=== PATIENT | male | born 1985 | race Caucasian/White ===

== ENCOUNTER 2023-12-17 16:32 | Emergency (ER) | payer OTHER ==
[2023-12-17 17:09] VITALS: BMI 24.5
[2023-12-17 18:04] LABS: EOS % 9.7 % (0-4.5); HEMATOCRIT 20.4 % (35.4-49); LYMPH % 8.1 % (8-40); MCH 30.5 pg (25.7-33.7); MCHC 33.4 g/dl (32.0-35.9); MEAN CELL VOLUME 91.5 fl (80-96); MEAN PLT VOLUME 7.2 fl (7.5-11.1); MONO % 7.8 % (3.8-10.2); NEUT % 73.4 % (42.8-82.8); PLATELET COUNT 243 10^3/uL (134-434); RBC 2.23 M/mm3 (4.00-5.60); RDW 16.7 % (11.9-15.9); WHITE BLOOD COUNT 10.3 K/mm3 (4.0-10.0)
[2023-12-17] MEDS ORDERED: oxyCODONE HCL 5 MG TABLET ONE ×2 (18:04→22:23)
[2023-12-17] MEDS: oxyCODONE HCL 5 MG TABLET PO ONE ×2 (18:06→22:32)
[2023-12-17 18:10] LABS: INR 1.32 (0.83-1.09); PROTHROMBIN TIME (PATIENT) 14.8 SEC (9.7-13.0)
[2023-12-17 18:13] LABS: ACTIVATED PTT 40.4 SECONDS (25.2-36.5); HEMOGLOBIN 6.8 GM/dL (11.7-16.9)
[2023-12-17 18:22] LABS: POTASSIUM 3.5 mmol/L (3.5-5.1)
[2023-12-17 18:24] LABS: ALBUMIN 1.8 g/dl (3.4-5.0); BLOOD UREA NITROGEN 46.2 mg/dL (7-18); CALCIUM 7.8 mg/dL (8.5-10.1)
[2023-12-17 18:27] LABS: CREATININE 6.9 mg/dL (0.55-1.3)
[2023-12-17 18:29] LABS: BILIRUBIN,TOTAL 0.4 mg/dL (0.2-1); TOT PROT 6.6 g/dl (6.4-8.2)
[2023-12-18 01:10] VITALS: BP 134/65; PULSE 69; RESP 18; TEMP 98.4
== END 2023-12-18 01:10 | disposition home or self-care (01) ==
LOC: JER 16:32
DX: R60.0 Localized edema (principal); E11.22 Type 2 diabetes mellitus with diabetic chronic kidney disease; N18.6 End stage renal disease; D63.1 Anemia in chronic kidney disease; Z99.2 Dependence on renal dialysis
CPT/HCPCS: 36415; 36430; 80053; 85025; 85610; 85730; 86850; 86900; 86901; 86922; 99285-25; P9038; P9058

== ENCOUNTER 2024-06-15 14:21 | Inpatient (IN) | payer OTHER ==
[2024-06-15] MEDS ORDERED: ACETAMINOPHEN INJECTION 100 ML ONE (16:03)
[2024-06-15] MEDS: ACETAMINOPHEN 1000 MG/100 ML BAG IVPB ONE (16:32)
[2024-06-15 16:49] LABS: VENOUS BASE EXCESS -2.6 mmol/L (-2-2); VENOUS O2 SATURATION 91.2 % (70-80); VENOUS PCO2 38.3 mmHg (38-52); VENOUS PH 7.382 (7.310-7.410)
[2024-06-15 16:51] LABS: INR 1.43 (0.83-1.09)
[2024-06-15 16:52] LABS: BASO % 0.4 % (0-2.0); EOS % 0.5 % (0-4.5); HEMATOCRIT 26.3 % (35.4-49); HEMOGLOBIN 8.5 GM/dL (11.7-16.9); LYMPH % 3.5 % (8-40); MCH 29.2 pg (25.7-33.7); MCHC 32.3 g/dl (32.0-35.9); MEAN CELL VOLUME 90.4 fl (80-96); MONO % 8.3 % (3.8-10.2); NEUT % 87.3 % (42.8-82.8); PLATELET COUNT 96 10^3/uL (134-434); RBC 2.91 M/mm3 (4.00-5.60); RDW 19.2 % (11.9-15.9); WHITE BLOOD COUNT 10.2 K/mm3 (4.0-10.0)
[2024-06-15 16:54] LABS: ACTIVATED PTT 40.3 SECONDS (25.2-36.5)
[2024-06-15 17:12] LABS: CHLORIDE 96 mmol/L (98-107); SODIUM 134 mmol/L (136-145)
[2024-06-15 17:14] LABS: ALBUMIN 2.4 g/dl (3.4-5.0); ANION GAP 14 mmol/L (4-13); BLOOD UREA NITROGEN 58.3 mg/dL (7-18); CALCIUM 7.9 mg/dL (8.5-10.1); CO2 23 mmol/L (21-32); GLUCOSE,RANDOM 96 mg/dL (74-106)
[2024-06-15 17:17] LABS: SGOT/AST 147 U/L (15-37); SGPT/ALT 54 U/L (13-61)
[2024-06-15 17:19] LABS: BILIRUBIN,TOTAL 2.5 mg/dL (0.2-1); TOT PROT 6.5 g/dl (6.4-8.2)
[2024-06-15] MEDS ORDERED: DEXAMETHASONE SOD PHOSPHATE 10 MG/1 ML VIAL ONE (17:19)
[2024-06-15 17:20] LABS: ALK PHOS 181 U/L (45-117)
[2024-06-15] MEDS: DEXAMETHASONE SOD PHOSPHATE 10 MG/1 ML VIAL IVPUSH SCH (17:20)
[2024-06-15 17:21] LABS: CREATININE 7.9 mg/dL (0.55-1.3)
[2024-06-15] MEDS: REMDESIVIR 200 MG in SODIUM CHLORIDE 250 ML IVPB ONE (18:23)
[2024-06-15] MEDS: SODIUM CHLORIDE 1,000 ML IV STA (18:49)
[2024-06-16] MEDS ORDERED: DOCUSATE SODIUM 100 MG CAPSULE (FP) PO PRN (04:07)
[2024-06-16] MEDS ORDERED: LOPERAMIDE HCL 2 MG CAPSULE PO PRN (04:07)
[2024-06-16] MEDS ORDERED: LIDOCAINE HCL 4% TOPICAL SOLN (50 ML/BOTTLE) MM PRN (04:07)
[2024-06-16] MEDS ORDERED: METOCLOPRAMIDE HCL 10 MG TABLET (FP) PO PRN (04:07)
[2024-06-16] MEDS ORDERED: NALOXONE HCL 0.4 MG/ML VIAL IM PRN (04:07)
[2024-06-16] MEDS: [UNRECOGNIZED DRUG - OTHER] PO SCH (05:23)
[2024-06-16] MEDS: CHOLECALCIFEROL 1250 MCG PO SCH (05:23)
[2024-06-16] MEDS: oxyCODONE HCL 5 MG TABLET PO PRN (06:20)
[2024-06-16] MEDS: busPIRone HCL 5 MG TABLET PO SCH (06:20)
[2024-06-16] MEDS: INSULIN ASPART SLIDING SCALE (NOVOLOG) 1 VIAL SQ SCH (06:22)
[2024-06-16] MEDS: HEPARIN NA (PORCINE) 5,000 UNITS/ML 1ML VIAL SQ SCH (06:22)
[2024-06-16 08:33] LABS: HEMATOCRIT 29.4 % (35.4-49); HEMOGLOBIN 9.3 GM/dL (11.7-16.9); MCHC 31.4 g/dl (32.0-35.9); MEAN CELL VOLUME 92.2 fl (80-96); MEAN PLT VOLUME 10.5 fl (7.5-11.1); PLATELET COUNT 97 10^3/uL (134-434); RBC 3.19 M/mm3 (4.00-5.60); RDW 19.5 % (11.9-15.9); WHITE BLOOD COUNT 10.8 K/mm3 (4.0-10.0)
[2024-06-16 08:55] LABS: MAGNESIUM 2.3 mg/dL (1.8-2.4)
[2024-06-16 08:58] LABS: PHOSPHOROUS 8.8 mg/dL (2.5-4.9)
[2024-06-16 09:01] LABS: CHLORIDE 98 mmol/L (98-107); POTASSIUM 4.3 mmol/L (3.5-5.1); SODIUM 133 mmol/L (136-145)
[2024-06-16 09:05] LABS: BLOOD UREA NITROGEN 71.4 mg/dL (7-18); CALCIUM 7.9 mg/dL (8.5-10.1); GLUCOSE,RANDOM 145 mg/dL (74-106)
[2024-06-16 09:06] LABS: ANION GAP 15 mmol/L (4-13); CO2 20 mmol/L (21-32)
[2024-06-16 09:07] LABS: BILIRUBIN,DIRECT 1.8 mg/dL (0.0-0.2)
[2024-06-16 09:08] LABS: IRON SERUM 19 ug/dL (50-175)
[2024-06-16 09:09] LABS: BILIRUBIN,TOTAL 2.2 mg/dL (0.2-1); TOT PROT 5.9 g/dl (6.4-8.2); TOTAL IRON BINDING CAPACITY 78 ug/dL (250-450)
[2024-06-16 09:23] LABS: CREATININE 8.5 mg/dL (0.55-1.3)
[2024-06-16] MEDS: ASCORBIC ACID 500 MG TABLET (FP) PO SCH (09:59)
[2024-06-16] MEDS: PANTOPRAZOLE 40 MG TABLET PO SCH (09:59)
[2024-06-16] MEDS: FOLIC ACID 1 MG TABLET (FP) PO SCH (09:59)
[2024-06-16] MEDS: VITAMIN B COMP W-C 1 EA TABLET (NEPHRO-VITE) PO SCH (09:59)
[2024-06-16] MEDS: LORazepam 0.5 MG TABLET PO SCH (10:01)
[2024-06-16] MEDS: VANCOMYCIN/WATER FOR INJ (PEG) 1,000 MG/200 ML BAG IVPB ONE (10:02)
[2024-06-16] MEDS: SEVELAMER CARBONATE 0.8 GM POWDER PACKET PO SCH (10:03)
[2024-06-16] MEDS: ASPIRIN COATED 81 MG TABLET.EC PO SCH (10:05)
[2024-06-16] MEDS ORDERED: SODIUM CHLORIDE 250 ML IV PRN (10:19)
[2024-06-16] MEDS: LACTOBACILLUS ACIDOPHILUS 1 TABLET PO SCH (12:11)
[2024-06-16] MEDS ORDERED: CEFEPIME HCL 1 GM VIAL (RESTRICTED TO ID) IVPB ONE (14:45)
[2024-06-16] MEDS ORDERED: HEPARIN NA (PORCINE) 5,000 UNITS/ML 1ML VIAL IVPUSH ONE (17:11)
[2024-06-16] MEDS ORDERED: HEPARIN NA (PORCINE) 5,000 UNITS/ML 1ML VIAL IVPUSH PRN ×2 (17:17)
[2024-06-16] MEDS: CEFEPIME 1 GM in DEXTROSE 5%-WATER 100 ML IVPB SCH (17:52)
[2024-06-16] MEDS: REMDESIVIR 100 MG in SODIUM CHLORIDE 250 ML IVPB SCH (17:57)
[2024-06-16] MEDS: EPOETIN ALFA-EPBX 4,000 UNIT/ML VIAL SQ ONE (18:10)
[2024-06-16] MEDS: ATORVASTATIN CA 80 MG TABLET (FP) PO SCH (21:35)
[2024-06-16] MEDS: ESCITALOPRAM OXALATE 20 MG TABLET PO SCH (21:38)
[2024-06-16] MEDS: HEPARIN SOD,PORK IN 0.45% NACL 25,000 UNITS/500 ML INFUS.BAG IVPB SCH (21:51)
[2024-06-16] MEDS ORDERED: ZOLPIDEM TARTRATE 5 MG TABLET PO PRN (22:00)
[2024-06-16] MEDS ORDERED: APIXABAN 2.5 MG TABLET PO SCH ×2 (22:00)
[2024-06-17 06:29] LABS: HEMOGLOBIN 9.2 GM/dL (11.7-16.9); MCH 28.8 pg (25.7-33.7); MCHC 31.8 g/dl (32.0-35.9); MEAN CELL VOLUME 90.4 fl (80-96); MEAN PLT VOLUME 9.7 fl (7.5-11.1); PLATELET COUNT 98 10^3/uL (134-434); RBC 3.21 M/mm3 (4.00-5.60); RDW 19.2 % (11.9-15.9); WHITE BLOOD COUNT 12.5 K/mm3 (4.0-10.0)
[2024-06-17 07:03] LABS: POTASSIUM 3.7 mmol/L (3.5-5.1)
[2024-06-17 07:06] LABS: ALBUMIN 2.2 g/dl (3.4-5.0); BLOOD UREA NITROGEN 47.8 mg/dL (7-18); CALCIUM 8.1 mg/dL (8.5-10.1)
[2024-06-17 07:09] LABS: CREATININE 5.8 mg/dL (0.55-1.3); PHOSPHOROUS 3.6 mg/dL (2.5-4.9)
[2024-06-17 07:11] LABS: BILIRUBIN,TOTAL 2.9 mg/dL (0.2-1); TOT PROT 6.3 g/dl (6.4-8.2)
[2024-06-17 11:07] LABS: BILIRUBIN,DIRECT 2.2 mg/dL (0.0-0.2)
[2024-06-17] MEDS: POLYETHYLENE GLYCOL (HEALTHYLAX) 3350 17 GM PACKET PO SCH (12:06)
[2024-06-17] MEDS: VANCOMYCIN/WATER 1250 MG 1,250 MG/250 ML BAG IVPB ONE (15:19)
[2024-06-18 06:45] LABS: HEMATOCRIT 25.4 % (35.4-49); HEMOGLOBIN 8.2 GM/dL (11.7-16.9); MCHC 32.3 g/dl (32.0-35.9); MEAN CELL VOLUME 89.7 fl (80-96); MEAN PLT VOLUME 10.3 fl (7.5-11.1); PLATELET COUNT 71 10^3/uL (134-434); RBC 2.83 M/mm3 (4.00-5.60); RDW 19.5 % (11.9-15.9); WHITE BLOOD COUNT 14.9 K/mm3 (4.0-10.0)
[2024-06-18 06:59] LABS: POTASSIUM 3.3 mmol/L (3.5-5.1)
[2024-06-18 07:01] LABS: ALBUMIN 1.9 g/dl (3.4-5.0); BLOOD UREA NITROGEN 60.6 mg/dL (7-18); CALCIUM 7.5 mg/dL (8.5-10.1); MAGNESIUM 1.9 mg/dL (1.8-2.4)
[2024-06-18 07:05] LABS: CREATININE 6.5 mg/dL (0.55-1.3)
[2024-06-18 07:06] LABS: BILIRUBIN,TOTAL 2.7 mg/dL (0.2-1); TOT PROT 5.9 g/dl (6.4-8.2)
[2024-06-18] MEDS ORDERED: VANCOMYCIN/WATER 1250 MG 1,250 MG/250 ML BAG IVPB ONE (08:00)
[2024-06-18] MEDS: LIDOCAINE HCL 1%, 10 MG/ML (20ML VIAL) SQ ONE (09:20)
[2024-06-18] MEDS ORDERED: SODIUM CHLORIDE 250 ML IV PRN (09:54)
[2024-06-18] MEDS: PANTOPRAZOLE 40 MG TABLET PO SCH (09:58)
[2024-06-18] MEDS: VANCOMYCIN/WATER 1250 MG 1,250 MG/250 ML BAG IVPB ONE (15:37)
[2024-06-18] MEDS: EPOETIN ALFA-EPBX 4,000 UNIT/ML VIAL IVPUSH ONE (17:00)
[2024-06-19 06:48] LABS: HEMATOCRIT 27.1 % (35.4-49); HEMOGLOBIN 8.7 GM/dL (11.7-16.9); MCH 28.8 pg (25.7-33.7); MCHC 32.1 g/dl (32.0-35.9); MEAN CELL VOLUME 89.7 fl (80-96); MEAN PLT VOLUME 10.1 fl (7.5-11.1); PLATELET COUNT 70 10^3/uL (134-434); POTASSIUM 3.6 mmol/L (3.5-5.1); RBC 3.03 M/mm3 (4.00-5.60); RDW 19.6 % (11.9-15.9); WHITE BLOOD COUNT 20.1 K/mm3 (4.0-10.0)
[2024-06-19 06:51] LABS: ALBUMIN 1.9 g/dl (3.4-5.0); BLOOD UREA NITROGEN 40.2 mg/dL (7-18)
[2024-06-19 06:52] LABS: CALCIUM 7.4 mg/dL (8.5-10.1)
[2024-06-19 06:53] LABS: MAGNESIUM 1.7 mg/dL (1.8-2.4)
[2024-06-19 06:55] LABS: CREATININE 4.7 mg/dL (0.55-1.3); PHOSPHOROUS 2.8 mg/dL (2.5-4.9)
[2024-06-19 06:56] LABS: BILIRUBIN,TOTAL 2.7 mg/dL (0.2-1)
[2024-06-19] MEDS: MAGNESIUM 1GM/D5W 100ML - 100 ML IVPB IVPB ONE (14:58)
[2024-06-19] MEDS ORDERED: RAPID SEQUENCE INTUBATION KIT NR ONE (17:21)
[2024-06-19 18:14] LABS: HEMATOCRIT 27.2 % (35.4-49); HEMOGLOBIN 8.2 GM/dL (11.7-16.9); MCH 28.1 pg (25.7-33.7); MCHC 30.2 g/dl (32.0-35.9); MEAN CELL VOLUME 93.1 fl (80-96); MEAN PLT VOLUME 10.6 fl (7.5-11.1); PLATELET COUNT 60 10^3/uL (134-434); RBC 2.92 M/mm3 (4.00-5.60); RDW 20.4 % (11.9-15.9); WHITE BLOOD COUNT 26.3 K/mm3 (4.0-10.0)
[2024-06-19 18:26] LABS: INR 1.58 (0.83-1.09); PROTHROMBIN TIME (PATIENT) 17.9 SEC (9.7-13.0)
[2024-06-19 18:29] LABS: ACTIVATED PTT 47.9 SECONDS (25.2-36.5)
[2024-06-19 18:34] LABS: POTASSIUM 4.2 mmol/L (3.5-5.1)
[2024-06-19 18:36] LABS: CALCIUM 7.3 mg/dL (8.5-10.1)
[2024-06-19 18:37] LABS: ALBUMIN 1.6 g/dl (3.4-5.0)
[2024-06-19 18:40] LABS: CREATININE 5.2 mg/dL (0.55-1.3)
[2024-06-19 18:41] LABS: BILIRUBIN,TOTAL 2.4 mg/dL (0.2-1)
[2024-06-19] MEDS ORDERED: NOREPINEPHRINE BITARTRATE 4 MG/4 ML ML IV ONE (18:41)
[2024-06-19 18:42] LABS: TOT PROT 5.4 g/dl (6.4-8.2)
[2024-06-19 18:57] LABS: LACTIC ACID 7.2 mmol/L (0.4-2.0)
[2024-06-19] MEDS: FENTANYL NS IVPB 500 MCG/100 ML BAG IVPB SCH (19:00)
[2024-06-19] MEDS ORDERED: SODIUM BICARBONATE 4.2% 5 MEQ/10 ML DISP.SYRIN IVPUSH ONE (19:00)
[2024-06-19] MEDS: PROPOFOL 1,000,000 MCG/100 ML VIAL IVPB SCH (19:00)
[2024-06-19 19:45] LABS: ANISOCYTOSIS 1+; HELMET CELLS 2+; MACROCYTOSIS 1+
[2024-06-19] MEDS: NOREPINEPHRINE BITARTRATE 4,000 MCG in DEXTROSE 5%-WATER - 496 ML IV SCH (20:20)
[2024-06-19] MEDS ORDERED: VANCOMYCIN/WATER 1250 MG 1,250 MG/250 ML BAG IVPB ONE (20:23)
[2024-06-19] MEDS: INSULIN (LEVEMIR) 100 UNITS/ML UNITS SQ SCH (21:36)
[2024-06-19] MEDS ORDERED: FIDAXOMICIN 200 MG TABLET PO SCH (22:00)
[2024-06-19] MEDS ORDERED: INSULIN (LEVEMIR) 100 UNITS/ML UNITS SQ SCH (22:00)
[2024-06-20 00:35] LABS: HEMOGLOBIN 8.7 GM/dL (11.7-16.9); MCH 28.3 pg (25.7-33.7); MCHC 32.2 g/dl (32.0-35.9); MEAN CELL VOLUME 87.9 fl (80-96); MEAN PLT VOLUME 9.9 fl (7.5-11.1); PLATELET COUNT 59 10^3/uL (134-434); RBC 3.07 M/mm3 (4.00-5.60); RDW 19.9 % (11.9-15.9); WHITE BLOOD COUNT 24.7 K/mm3 (4.0-10.0)
[2024-06-20 00:53] LABS: POTASSIUM 3.5 mmol/L (3.5-5.1)
[2024-06-20 00:55] LABS: BLOOD UREA NITROGEN 51.5 mg/dL (7-18); CALCIUM 7.4 mg/dL (8.5-10.1); MAGNESIUM 2.1 mg/dL (1.8-2.4)
[2024-06-20 00:59] LABS: CREATININE 5.2 mg/dL (0.55-1.3); PHOSPHOROUS 4.3 mg/dL (2.5-4.9)
[2024-06-20 01:00] LABS: TOT PROT 5.7 g/dl (6.4-8.2)
[2024-06-20 01:03] LABS: ALBUMIN 1.9 g/dl (3.4-5.0)
[2024-06-20] MEDS: VASopressin 40 UNITS/100 ML BAG IV SCH (01:35)
[2024-06-20 01:55] LABS: ARTERIAL BLOOD GAS BASE EXCESS -0.4 mmol/L (-2-2); ARTERIAL BLOOD GAS PO2 63.4 mmHg (80-100); ARTERIAL BLOOD GAS pH 7.385 (7.350-7.450)
[2024-06-20 02:02] LABS: VENT MODE A/C; VENT RATE 12
[2024-06-20 07:20] LABS: ARTERIAL BLD GAS O2 SATURATION 88.3 % (95-98); ARTERIAL BLOOD GAS BASE EXCESS 0.3 mmol/L (-2-2); ARTERIAL BLOOD GAS PO2 53.6 mmHg (80-100); ARTERIAL BLOOD GAS pH 7.412 (7.350-7.450)
[2024-06-20 07:26] LABS: VENT MODE A/C; VENT RATE 12
[2024-06-20] MEDS: NOREPINEPHRINE BITARTRATE/D5W 8 MG/250 ML BAG IVPB SCH (07:27)
[2024-06-20 07:43] LABS: POTASSIUM 3.7 mmol/L (3.5-5.1)
[2024-06-20 07:45] LABS: CALCIUM 7.4 mg/dL (8.5-10.1)
[2024-06-20 07:46] LABS: ALBUMIN 1.8 g/dl (3.4-5.0); BLOOD UREA NITROGEN 56.3 mg/dL (7-18); MAGNESIUM 2.1 mg/dL (1.8-2.4)
[2024-06-20 07:47] LABS: HEMATOCRIT 27.3 % (35.4-49); HEMOGLOBIN 8.9 GM/dL (11.7-16.9); MCH 28.6 pg (25.7-33.7); MCHC 32.7 g/dl (32.0-35.9); MEAN CELL VOLUME 87.7 fl (80-96); MEAN PLT VOLUME 10.6 fl (7.5-11.1); PLATELET COUNT 58 10^3/uL (134-434); RBC 3.11 M/mm3 (4.00-5.60); RDW 19.7 % (11.9-15.9); WHITE BLOOD COUNT 27.6 K/mm3 (4.0-10.0)
[2024-06-20 07:48] LABS: BILIRUBIN,DIRECT 2.2 mg/dL (0.0-0.2); PHOSPHOROUS 4.3 mg/dL (2.5-4.9)
[2024-06-20 07:49] LABS: CREATININE 5.3 mg/dL (0.55-1.3)
[2024-06-20 07:50] LABS: BILIRUBIN,TOTAL 2.9 mg/dL (0.2-1); TOT PROT 5.9 g/dl (6.4-8.2)
[2024-06-20 08:04] LABS: LACTIC ACID 2.3 mmol/L (0.4-2.0)
[2024-06-20 08:08] LABS: INR 1.39 (0.83-1.09); PROTHROMBIN TIME (PATIENT) 15.6 SEC (9.7-13.0)
[2024-06-20 08:11] LABS: ACTIVATED PTT 36.5 SECONDS (25.2-36.5)
[2024-06-20 09:13] LABS: ANISOCYTOSIS 1+; MACROCYTOSIS 0; TARGET CELLS 1+
[2024-06-20] MEDS ORDERED: MIDAZOLAM IN 0.9 % SOD.CHLORID 1 MG/1 ML PLAST..BAG ONE (11:29)
[2024-06-20] MEDS: ATROPINE SULFATE 1 MG/10 ML DISP.SYRIN IVPUSH ONE (11:48)
[2024-06-20] MEDS: MIDAZOLAM IN 0.9 % SOD.CHLORID 100 MG/100 ML PLAST..BAG IVPB SCH (11:57)
[2024-06-20 12:24] LABS: ARTERIAL BLD GAS O2 SATURATION 93.9 % (95-98); ARTERIAL BLOOD GAS BASE EXCESS -3.1 mmol/L (-2-2); ARTERIAL BLOOD GAS PO2 71.6 mmHg (80-100); ARTERIAL BLOOD GAS pH 7.361 (7.350-7.450)
[2024-06-20 13:16] LABS: POTASSIUM 4.3 mmol/L (3.5-5.1)
[2024-06-20 13:17] LABS: HEMATOCRIT 27.9 % (35.4-49); HEMOGLOBIN 8.8 GM/dL (11.7-16.9); MCH 28.1 pg (25.7-33.7); MCHC 31.7 g/dl (32.0-35.9); MEAN CELL VOLUME 88.8 fl (80-96); MEAN PLT VOLUME 10.8 fl (7.5-11.1); PLATELET COUNT 61 10^3/uL (134-434); RBC 3.15 M/mm3 (4.00-5.60); RDW 20.7 % (11.9-15.9)
[2024-06-20 13:18] LABS: CALCIUM 7.7 mg/dL (8.5-10.1)
[2024-06-20 13:19] LABS: ALBUMIN 1.7 g/dl (3.4-5.0); BLOOD UREA NITROGEN 60.6 mg/dL (7-18); MAGNESIUM 2.5 mg/dL (1.8-2.4)
[2024-06-20 13:21] LABS: WHITE BLOOD COUNT 33.6 K/mm3 (4.0-10.0)
[2024-06-20 13:22] LABS: CREATININE 5.6 mg/dL (0.55-1.3); PHOSPHOROUS 5.4 mg/dL (2.5-4.9)
[2024-06-20 13:23] LABS: BILIRUBIN,TOTAL 2.8 mg/dL (0.2-1)
[2024-06-20 13:24] LABS: TOT PROT 5.8 g/dl (6.4-8.2)
[2024-06-20 13:31] LABS: LACTIC ACID 5.2 mmol/L (0.4-2.0)
[2024-06-20 14:21] LABS: ANISOCYTOSIS 2+; MACROCYTOSIS 0; TARGET CELLS 1+
[2024-06-20] MEDS: DAPTOMYCIN 800 MG in SODIUM CHLORIDE 50 ML IVPB ONE (14:49)
[2024-06-20] MEDS ORDERED: VASopressin 20 UNITS/ML VIAL IV ONE (19:29)
[2024-06-20] MEDS: HYDROCORTISONE SOD SUCCINATE 100 MG/2 ML VIAL IVPUSH SCH (23:00)
[2024-06-21 06:21] LABS: ARTERIAL BLD GAS O2 SATURATION 96.4 % (95-98); ARTERIAL BLOOD GAS BASE EXCESS -2.8 mmol/L (-2-2); ARTERIAL BLOOD GAS PO2 85.6 mmHg (80-100); ARTERIAL BLOOD GAS pH 7.381 (7.350-7.450)
[2024-06-21 06:33] LABS: ALLENS TEST POSITIVE
[2024-06-21 06:34] LABS: VENT MODE A/C; VENT RATE 20
[2024-06-21 07:02] LABS: HEMATOCRIT 26.3 % (35.4-49); HEMOGLOBIN 8.6 GM/dL (11.7-16.9); MCH 28.6 pg (25.7-33.7); MCHC 32.7 g/dl (32.0-35.9); MEAN CELL VOLUME 87.3 fl (80-96); MEAN PLT VOLUME 10.9 fl (7.5-11.1); PLATELET COUNT 58 10^3/uL (134-434); RBC 3.01 M/mm3 (4.00-5.60); RDW 20.1 % (11.9-15.9)
[2024-06-21 07:16] LABS: POTASSIUM 4.5 mmol/L (3.5-5.1)
[2024-06-21 07:18] LABS: WHITE BLOOD COUNT 30.7 K/mm3 (4.0-10.0)
[2024-06-21 07:23] LABS: CALCIUM 7.2 mg/dL (8.5-10.1)
[2024-06-21 07:24] LABS: ALBUMIN 1.8 g/dl (3.4-5.0); BLOOD UREA NITROGEN 77.1 mg/dL (7-18); MAGNESIUM 2.1 mg/dL (1.8-2.4); PHOSPHOROUS 6.7 mg/dL (2.5-4.9)
[2024-06-21 07:25] LABS: BILIRUBIN,TOTAL 3.3 mg/dL (0.2-1)
[2024-06-21 07:27] LABS: CREATININE 6.2 mg/dL (0.55-1.3)
[2024-06-21 09:06] LABS: ANISOCYTOSIS 1+; MACROCYTOSIS 0
[2024-06-21] MEDS: FENTANYL NS IVPB 500 MCG/100 ML BAG IVPB SCH (09:36)
[2024-06-21] MEDS: PANTOPRAZOLE SODIUM 40 MG VIAL IVPUSH SCH (09:47)
[2024-06-21 11:32] VITALS: BMI 27.8
[2024-06-22 06:25] LABS: ARTERIAL BLD GAS O2 SATURATION 98.2 % (95-98); ARTERIAL BLOOD GAS BASE EXCESS -4.5 mmol/L (-2-2); ARTERIAL BLOOD GAS PO2 118.5 mmHg (80-100); ARTERIAL BLOOD GAS pH 7.352 (7.350-7.450)
[2024-06-22 06:27] LABS: ALLENS TEST POSITIVE
[2024-06-22 06:29] LABS: VENT MODE A/C; VENT RATE 20
[2024-06-22 07:17] LABS: INR 1.29 (0.83-1.09); PROTHROMBIN TIME (PATIENT) 14.7 SEC (9.7-13.0)
[2024-06-22 07:19] LABS: ACTIVATED PTT 37.5 SECONDS (25.2-36.5)
[2024-06-22 07:25] LABS: HEMATOCRIT 25.1 % (35.4-49); HEMOGLOBIN 7.9 GM/dL (11.7-16.9); MCH 27.6 pg (25.7-33.7); MCHC 31.4 g/dl (32.0-35.9); MEAN CELL VOLUME 87.7 fl (80-96); MEAN PLT VOLUME 10.4 fl (7.5-11.1); PLATELET COUNT 71 10^3/uL (134-434); RBC 2.86 M/mm3 (4.00-5.60); RDW 20.2 % (11.9-15.9)
[2024-06-22 07:28] LABS: WHITE BLOOD COUNT 40.3 K/mm3 (4.0-10.0)
[2024-06-22 07:29] LABS: CHLORIDE 97 mmol/L (98-107); POTASSIUM 5.1 mmol/L (3.5-5.1); SODIUM 136 mmol/L (136-145)
[2024-06-22 07:33] LABS: ANION GAP 16 mmol/L (4-13); CO2 23 mmol/L (21-32); GLUCOSE,RANDOM 175 mg/dL (74-106); MAGNESIUM 2.4 mg/dL (1.8-2.4)
[2024-06-22 07:36] LABS: CREATININE 7.2 mg/dL (0.55-1.3); PHOSPHOROUS 7.6 mg/dL (2.5-4.9)
[2024-06-22 07:48] LABS: BLOOD UREA NITROGEN 104.8 mg/dL (7-18); LACTIC ACID 3.5 mmol/L (0.4-2.0)
[2024-06-22] MEDS ORDERED: SODIUM CHLORIDE 250 ML IV PRN (09:50)
[2024-06-22] MEDS: FLUDROCORTISONE ACETATE 0.1 MG TABLET (FP) PO SCH (10:05)
[2024-06-22] MEDS: SODIUM CHLORIDE 1,000 ML IV SCH (10:07)
[2024-06-22 10:11] LABS: ALBUMIN 1.6 g/dl (3.4-5.0); ANISOCYTOSIS 1+; MACROCYTOSIS 0; OVALOCYTE 1+; TARGET CELLS 1+
[2024-06-22 10:14] LABS: BILIRUBIN,DIRECT 2.9 mg/dL (0.0-0.2); SGOT/AST 35 U/L (15-37)
[2024-06-22 10:15] LABS: BILIRUBIN,TOTAL 3.8 mg/dL (0.2-1); SGPT/ALT 53 U/L (13-61)
[2024-06-22 10:16] LABS: TOT PROT 5.6 g/dl (6.4-8.2)
[2024-06-22 10:17] LABS: ALK PHOS 155 U/L (45-117)
[2024-06-22] MEDS: DAPTOMYCIN 800 MG in SODIUM CHLORIDE 50 ML IVPB ONE (10:37)
[2024-06-22 13:49] VITALS: RESP 23
[2024-06-22 13:51] VITALS: BP 100/27; PULSE 76; TEMP 100.4
== END 2024-06-22 04:10 | disposition expired | DRG 871 ==
LOC: JER 14:21 → JERBED 17:26 → J4S 20:29 → JICU 06-19 18:19
PROVIDERS: ADMIT Internal Medicine; ATTEND Internal Medicine Pulmonary Disease
PROC: XW033E5 Introduction of Remdesivir Anti-infective into Peripheral Vein, Percutaneous Approach, New Technology Group 5 (ICD-10-PCS; 2024-06-15)
PROC: 0BH17EZ Insertion of Endotracheal Airway into Trachea, Via Natural or Artificial Opening (ICD-10-PCS; principal; 2024-06-19)
PROC: 5A1945Z Respiratory Ventilation, 24-96 Consecutive Hours (ICD-10-PCS; 2024-06-19)
PROC: 5A12012 Performance of Cardiac Output, Single, Manual (ICD-10-PCS; 2024-06-19)
PROC: 30233K1 Transfusion of Nonautologous Frozen Plasma into Peripheral Vein, Percutaneous Approach (ICD-10-PCS; 2024-06-19)
PROC: 30233N1 Transfusion of Nonautologous Red Blood Cells into Peripheral Vein, Percutaneous Approach (ICD-10-PCS; 2024-06-19)
PROC: 4A133B1 Monitoring of Arterial Pressure, Peripheral, Percutaneous Approach (ICD-10-PCS; 2024-06-21)
PROC: 4A133J1 Monitoring of Arterial Pulse, Peripheral, Percutaneous Approach (ICD-10-PCS; 2024-06-21)
DX: A41.89 Other specified sepsis (principal); J96.01 Acute respiratory failure with hypoxia; U07.1 COVID-19; N18.6 End stage renal disease; R65.21 Severe sepsis with septic shock; I24.89 Other forms of acute ischemic heart disease; I12.0 Hypertensive chronic kidney disease with stage 5 chronic kidney disease or end stage renal disease; N17.9 Acute kidney failure, unspecified; D62 Acute posthemorrhagic anemia; F41.8 Other specified anxiety disorders; E11.9 Type 2 diabetes mellitus without complications; I48.0 Paroxysmal atrial fibrillation; R79.89 Other specified abnormal findings of blood chemistry; E80.6 Other disorders of bilirubin metabolism; I25.10 Atherosclerotic heart disease of native coronary artery without angina pectoris; E78.00 Pure hypercholesterolemia, unspecified; E11.51 Type 2 diabetes mellitus with diabetic peripheral angiopathy without gangrene; E11.22 Type 2 diabetes mellitus with diabetic chronic kidney disease; R68.0 Hypothermia, not associated with low environmental temperature; N20.0 Calculus of kidney; R16.0 Hepatomegaly, not elsewhere classified; R00.0 Tachycardia, unspecified; E87.5 Hyperkalemia; R50.9 Fever, unspecified; I46.9 Cardiac arrest, cause unspecified; Z89.431 Acquired absence of right foot; Z89.021 Acquired absence of right finger(s); Z99.2 Dependence on renal dialysis; Z95.1 Presence of aortocoronary bypass graft
CPT/HCPCS: 0241U-QW; 31500; 36415; 36430; 36600; 71045-TC-FY; 76705-TC; 80048; 80053; 80076; 82248; 82308; 82550; 82553; 82728; 82803; 82962; 82977; 83540; 83550; 83605; 83735; 84100; 84484; 85025; 85027; 85045; 85384; 85610; 85730; 86140; 86704; 86803; 86850; 86900; 86901; 87040; 87186; 87340; 87481; 87517; 93005; 93010; 93306-TC; 94002; 99285-25; G0480; J0131; J0248; J0878; J1100; J1644; J3490; P9017; P9038; P9058; Q5106